=== PATIENT | male | born 1990 | race Caucasian/White ===

== ENCOUNTER 2018-12-09 23:43 | Emergency (ER) | payer OTHER ==
[~2018-12-09] VITALS: Ht 175.3 cm; Wt 73.6 kg
[2018-12-10] MEDS ORDERED: KETOROLAC 30 MG/ML VIAL (J1885) IV ONE (01:30)
[2018-12-10] MEDS ORDERED: NS 1,000 ML IV ONE (01:30)
[2018-12-10] MEDS ORDERED: GI COCKTAIL 50ML BTL(HYOSCYAMINE/MAALOX/LIDOCAINE VISCOUS)(1:3:1) PO ONE (01:30)
[2018-12-10 01:47] LABS: BASO # 0.1 10^3/uL (0.0-0.2); EOS # 0.3 10^3/uL (0.0-0.5); EOS % 4.4 % (0.0-3.0); HEMATOCRIT 45.4 % (42.0-52.0); LYMPH # 2.9 10^3/uL (1.5-5.0); LYMPH % 48.2 % (24.0-44.0); MEAN CORPUSCULAR HEMOGLOBIN 30.5 pg (27.0-33.0); MEAN CORPUSCULAR HGB CONC 35.2 g/dl (32.0-36.5); MEAN CORPUSCULAR VOLUME 86.5 fl (80.0-96.0); MONO # 0.6 10^3/uL (0.0-0.8); MONO % 10.2 % (0.0-5.0); NEUTROPHILS # 2.1 10^3/uL (1.5-8.5); PLATELET COUNT, AUTOMATED 159 10^3/uL (150-450); RED BLOOD COUNT 5.25 10^6/uL (4.30-6.10); WHITE BLOOD COUNT 5.9 10^3/uL (4.0-10.0)
[2018-12-10 02:24] LABS: ALBUMIN 3.9 GM/DL (3.2-5.2); ALT/SGPT 42 U/L (12-78); BILIRUBIN,TOTAL 0.3 MG/DL (0.2-1.0); BLOOD UREA NITROGEN 12 MG/DL (7-18); CALCIUM LEVEL 8.9 MG/DL (8.5-10.1); CARBON DIOXIDE LEVEL 29 MEQ/L (21-32); CHLORIDE LEVEL 107 MEQ/L (98-107); CREATININE FOR GFR 0.94 MG/DL (0.70-1.30); GLOMERULAR FILTRATION RATE > 60.0 (>60); GLUCOSE, FASTING 92 MG/DL (70-100); LIPASE 139 U/L (73-393); POTASSIUM SERUM 3.8 MEQ/L (3.5-5.1); SODIUM LEVEL 140 MEQ/L (136-145); TOTAL PROTEIN 6.8 GM/DL (6.4-8.2)
[2018-12-10] MEDS ORDERED: NAPR-837 PO (02:31)
[2018-12-10 02:46] VITALS: BP 104/60
--- NOTE | 2018-12-10 02:51 | REPVR ---
PROCEDURE INFORMATION: Exam: XR Chest, 2 Views Exam date and time: 12/10/18 (1:33am) Clinical history: 28 year old male with chest pain TECHNIQUE: Imaging protocol: XR of the chest Views: 2 views COMPARISON: No relevant prior studies available FINDINGS: Lungs: Unremarkable. No consolidation. Pleural space: Unremarkable. No pleural effusions. No pneumothorax. Heart/Mediastinum: Unremarkable. No cardiomegaly. Bones/joints: Unremarkable. IMPRESSION: No acute findings. Clear lung taylor. Electronically signed by: Soraya Mccoy On 12/10/2018 02:51:10 AM
--- NOTE | 2018-12-10 07:40 | ECGEPIP ---
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
== END 2018-12-10 02:49 | disposition home or self-care (01) ==
LOC: M ED 23:43
DX: R07.9 Chest pain, unspecified (principal)
CPT/HCPCS: 71046; 80053; 83690; 85025; 85379; 93005; 96374; 99284; J1885

== ENCOUNTER 2019-02-20 11:23 | Emergency (ER) | payer OTHER ==
[~2019-02-20] VITALS: Ht 175.3 cm; Wt 75.9 kg
[~2019-02-20 11:23] MED LIST: NAPR-837 PO
[2019-02-20] MEDS ORDERED: PREDNISON (11:31)
[2019-02-20] MEDS ORDERED: BENA25CA4 PO ×2 (11:31→13:28)
[2019-02-20] MEDS ORDERED: WELLTAB38 PO (11:56)
[2019-02-20] MEDS ORDERED: EPIP0.3I2 IM (11:56)
[2019-02-20] MEDS ORDERED: ZOLO25TA PO (11:56)
[2019-02-20] MEDS ORDERED: methylPREDNISolone INJ 125 MG/2 ML VIAL (J2930) IM ONE (12:30)
[2019-02-20] MEDS ORDERED: diphenhydrAMINE INJ 50MG/ML VIAL (J1200) IM ONE (12:30)
[2019-02-20] MEDS ORDERED: FAMOTIDINE 20 MG TAB PO ONE (12:45)
[2019-02-20] MEDS ORDERED: PRED20TA PO (13:28)
[2019-02-20] MEDS ORDERED: PEPC1TAB5 PO (13:28)
[2019-02-20 13:38] VITALS: BP 130/80
== END 2019-02-20 13:39 | disposition home or self-care (01) ==
LOC: M ED 11:23
DX: R21 Rash and other nonspecific skin eruption (principal); T43.295A Adverse effect of other antidepressants, initial encounter; Y92.9 Unspecified place or not applicable; Y93.9 Activity, unspecified; Z79.899 Other long term (current) drug therapy
CPT/HCPCS: 96372; 99283; J1200; J2930

== ENCOUNTER 2019-03-31 13:51 | Emergency (ER) | payer OTHER ==
[~2019-03-31] VITALS: Ht 175.3 cm; Wt 77.3 kg
[~2019-03-31 13:51] MED LIST changes: +BENA25CA4 PO; +EPIP0.3I2 IM; +PEPC1TAB5 PO; +PRED20TA PO; +PREDNISON; +WELLTAB38 PO; +ZOLO25TA PO
--- NOTE | 2019-03-31 15:48 | REP ---
Scrotal ultrasound for testicular pain: The right testis measures 4.4 x 2.2 x 3.2 cm. Left testis measures 4.8 x 2.3 x 3.3 cm. The testes are normal size. There are no testicular masses or cysts. There is vascular flow in both testes. The Doppler resistive index in the parenchymal arteries of the right testis is 0.61 and left testis 0.60. The right epididymal head measures 8.2 mm and left epididymal head 80.0 mm. There are left epididymal head cysts, largest measures 6 mm . No right epididymal head cysts are identified. Dilated vessels are noted along the left carmine scrotal wall laterally measuring up to 2.7 mm with no significant size change on Valsalva. This may represent a developing varicocele. Impression: Left epididymal head cysts. There is vascular flow in both testes. There are no testicular masses or cysts. There are dilated vessels in the left carmine scrotum lateral wall, however, these demonstrate no diameter change with Valsalva. This may represent a developing left varicocele. Follow-up is recommended. Electronically Signed by Brandon Aguilar MD 03/31/2019 03:40 P
[2019-03-31] MEDS ORDERED: KETOROLAC TROMETHAMINE 10 MG TAB PO ONE (18:45)
--- NOTE | 2019-03-31 19:40 | REPVR ---
PROCEDURE INFORMATION: Exam: CT Abdomen And Pelvis Without Contrast Exam date and time: 03/31/2019 7:17 PM Age: 29 years old Clinical indication: Pain; Other: Groin; Additional info: Left groin/testicle pain TECHNIQUE: Imaging protocol: Computed tomography of the abdomen and pelvis without contrast. Radiation optimization: All CT scans at this facility use at least one of these dose optimization techniques: automated exposure control; mA and/or kV adjustment per patient size (includes targeted exams where dose is matched to clinical indication); or iterative reconstruction. COMPARISON: No relevant prior studies available. FINDINGS: Limited evaluation without enteric or IV contrast. Lungs: No suspicious mass or airspace process in the visualized lung bases. Liver: Noncontrast liver shows no obvious lesion. Gallbladder and bile ducts: Gallbladder is present and shows no evidence of gallstone. Pancreas: Noncontrast pancreas shows no obvious mass or adjacent fluid. Spleen: Noncontrast spleen shows no obvious focal deformity. Adrenals: Adrenal glands are normal in appearance. Kidneys and ureters: Kidneys show no stone or hydronephrosis. Stomach and bowel: No evidence of small bowel obstruction. No evidence of acute diverticulitis. Appendix: Normal caliber appendix is identified, with no adjacent inflammation. Intraperitoneal space: No pneumoperitoneum. Vasculature: No aortic aneurysm. Lymph nodes: No enlarged lymph nodes. Bladder: Urinary bladder appears normal. Bones/joints: Bony structures show no acute fracture or destructive process. Soft tissues: Fat containing umbilical hernia is present. No effacement of normal fat planes in the ischiorectal fossa. No evidence of inguinal hernia. IMPRESSION: 1. No explanation for left groin pain. No concerning abnormality. 2. Incidental small fat containing umbilical hernia measuring 1 cm Electronically signed by: Michael Lucero On 03/31/2019 19:40:30 PM
[2019-03-31 20:45] LABS: CHLAMYDIA DNA AMPLIFICATION NEGATIVE (NEGATIVE); GC DNA AMPLIFICATION NEGATIVE (NEGATIVE)
[2019-03-31] MEDS ORDERED: NAPR-837 PO (20:48)
[2019-03-31 20:56] VITALS: BP 140/77
[2019-03-31] MEDS ORDERED: PERCOCET 5MG/325MG TAB PO ONE (21:00)
[2019-03-31] MEDS ORDERED: NORCO 5/325MG TABLET (BULK FOR ED) PO ONE (21:00)
--- NOTE | 2019-04-01 14:58 | ED PDOC ---
Post-Departure Follow-Up ft shabnam fp faxed formal report of scrotal us for fu Tlaia Lee MD Apr 01, 2019 14:58
== END 2019-03-31 21:23 | disposition home or self-care (01) ==
LOC: M ED 13:51
DX: N50.812 Left testicular pain (principal); R11.0 Nausea; K42.9 Umbilical hernia without obstruction or gangrene; Z88.8 Allergy status to other drugs, medicaments and biological substances; Z79.899 Other long term (current) drug therapy
CPT/HCPCS: 36415; 74176; 76870; 80047; 81001; 87491; 87591; 93976; 99283; G0463

== ENCOUNTER → 2019-04-08 | Outpatient (REF) | payer OTHER | LOC: M SMT 13:26 | PROVIDERS: ATTEND Nurse Practitioner Family | DX: N50.82 Scrotal pain (principal) | CPT/HCPCS: 87086; G0463 ==

== ENCOUNTER 2019-04-30 17:38 | Emergency (ER) | payer OTHER ==
[~2019-04-30] VITALS: Ht 175.3 cm; Wt 80.6 kg
--- NOTE | 2019-04-30 19:38 | REPVR ---
PROCEDURE INFORMATION: Exam: US Scrotum and US Duplex Artery and Vein, Scrotum, Complete Exam date and time: 04/30/2019 7:28 PM Age: 29 years old Clinical indication: Scrotum pain; Additional info: Pain, left TECHNIQUE: Imaging protocol: Real-time ultrasound of the scrotum. Real-time duplex ultrasound scan of the arterial and venous flow of the scrotum with B-mode, color Doppler flow and spectral waveform analysis. Complete exam. Duplex images required to evaluate vascular conditions. COMPARISON: Scrotal, US 03/31/2019 2:40 PM FINDINGS: Right testicle: Right testis measures 3.4 x 2.3 x 4.4 cm. Normal arterial waveforms on duplex color spectral Doppler analysis. Left testicle: Left testis measures 3.3 x 4.5 x 2.2 cm. Normal arterial waveforms on duplex color spectral Doppler analysis. Epididymides: 5 cm anechoic left epididymal head cyst. Scrotum: Unremarkable. IMPRESSION: No evidence of testicular torsion. Electronically signed by: Hao Mulligan On 04/30/2019 19:38:21 PM
[2019-04-30 20:37] LABS: HEMOGLOBIN 15.9 g/dl (13.5-17.5); MEAN CORPUSCULAR HEMOGLOBIN 29.8 pg (27.0-33.0); MEAN CORPUSCULAR HGB CONC 34.6 g/dl (32.0-36.5); MEAN CORPUSCULAR VOLUME 86.1 fl (80.0-96.0); PLATELET COUNT, AUTOMATED 159 10^3/uL (150-450); RED BLOOD COUNT 5.34 10^6/uL (4.30-6.10); WHITE BLOOD COUNT 5.8 10^3/uL (4.0-10.0)
[2019-04-30 20:58] LABS: BLOOD UREA NITROGEN 10 MG/DL (7-18); CALCIUM LEVEL 9.1 MG/DL (8.5-10.1); CARBON DIOXIDE LEVEL 29 MEQ/L (21-32); CHLORIDE LEVEL 108 MEQ/L (98-107); CREATININE FOR GFR 1.11 MG/DL (0.70-1.30); GLOMERULAR FILTRATION RATE > 60.0 (>60); GLUCOSE, FASTING 109 MG/DL (70-100); SODIUM LEVEL 140 MEQ/L (136-145)
[2019-04-30] MEDS: KETOROLAC 30 MG/ML VIAL (J1885) IV ONE (21:06)
[2019-04-30 21:10] VITALS: BP 124/80
[2019-04-30] MEDS: MORPHINE 2 MG/ML 1ML VIAL (J2270) IV PRN (21:10)
[2019-04-30] MEDS ORDERED: KETO10TAB PO (21:50)
[2019-04-30] MEDS ORDERED: PERC5TAB12 PO (21:50)
[2019-04-30] MEDS ORDERED: OXYCODONE/APAP 5MG/325MG(BULK FOR ED) 1 TABLET PO ONE (22:00)
[2019-05-01 12:22] LABS: CHLAMYDIA DNA AMPLIFICATION NEGATIVE (NEGATIVE); GC DNA AMPLIFICATION NEGATIVE (NEGATIVE)
== END 2019-04-30 22:36 | disposition home or self-care (01) ==
LOC: M ED 17:38
DX: N50.812 Left testicular pain (principal); F33.9 Major depressive disorder, recurrent, unspecified; Z79.899 Other long term (current) drug therapy; Z98.890 Other specified postprocedural states; Z72.0 Tobacco use; Z88.8 Allergy status to other drugs, medicaments and biological substances
CPT/HCPCS: 76870; 80048; 81001; 85027; 87491; 87591; 93976; 96374; 96375; 99283; J1885; J2270

== ENCOUNTER 2019-05-11 12:28 | Emergency (ER) | payer OTHER ==
[~2019-05-11] VITALS: Ht 175.3 cm; Wt 79.4 kg
[2019-05-11 12:28] VITALS: BP 123/68
[~2019-05-11 12:28] MED LIST changes: +KETO10TAB PO; +PERC5TAB12 PO
--- NOTE | 2019-05-11 14:38 | REP ---
SCROTAL ULTRASOUND: Real-time sonographic evaluation of the scrotum and contents performed. Testicles are normal in size and echotexture, right testicle measuring 4.9 x 2.1 x 3.3 cm and left testicle 4.9 x 2.3 x 3.4 cm. There is no testicular mass or torsion. Blood flow is seen in each testicle with duplex Doppler evaluation. Cyst in the head of the left epididymis measures 5 mm in diameter. There does not appear to be significant hydrocele. IMPRESSION: No testicular mass or torsion. Electronically Signed by Brandon Carroll MD 05/11/2019 05:56 P
[2019-05-11 15:24] LABS: CHLAMYDIA DNA AMPLIFICATION NEGATIVE (NEGATIVE); GC DNA AMPLIFICATION NEGATIVE (NEGATIVE)
== END 2019-05-11 15:48 | disposition home or self-care (01) ==
LOC: M ED 12:28
DX: N50.812 Left testicular pain (principal); Z88.8 Allergy status to other drugs, medicaments and biological substances